=== PATIENT | male | born 1970 | race Two or more races ===

== ENCOUNTER 2023-04-16 17:07 | Emergency (ER) | payer OTHER ==
[~2023-04-16] VITALS: Ht 165.1 cm; Wt 88.6 kg
[2023-04-16 17:10] VITALS: BP 142/89; PULSE 72; RESP 18; O2SAT 98
[2023-04-16] MEDS ORDERED: ONDANSETRON ODT 4 MG TAB PO ONE (19:30)
[2023-04-16] MEDS: TETANUS-DIPTH-ACEL PERTUSSIS 0.5ML SYR Tdap IM ONE ×2 (19:30→22:03)
[2023-04-16] MEDS ORDERED: MECLIZINE HCL 25 MG TAB PO ONE (19:30)
[2023-04-16] MEDS ORDERED: LIDOCAINE 1% HCL (LOCAL ANESTH.) INJ 20ML MDV ID ONE (19:30)
[2023-04-16] MEDS ORDERED: MECL25CH85 PO (21:56)
[2023-04-16] MEDS ORDERED: IBUP1TAB5 PO (21:56)
[2023-04-16] MEDS ORDERED: ZOFR4T PO (21:56)
[2023-04-16] MEDS ORDERED: HYDROcodone-ACET 5/325MG TAB PO ONE (22:00)
[2023-04-16] MEDS ORDERED: CEPH500C PO (22:17)
== END 2023-04-16 22:11 | disposition home or self-care (01) ==
LOC: ER 17:07
DX: S01.01XA Laceration without foreign body of scalp, initial encounter (principal); S13.8XXA Sprain of joints and ligaments of other parts of neck, initial encounter; W22.8XXA Striking against or struck by other objects, initial encounter; Y93.89 Activity, other specified; Y92.89 Other specified places as the place of occurrence of the external cause; Y99.8 Other external cause status
CPT/HCPCS: 12011; 70450; 72125; 99284; J2001; J8597; Q0162; 90715